=== PATIENT | female | born 1995 | race Caucasian/White ===

== ENCOUNTER 2017-03-13 13:29 | Emergency (ER) | payer MEDICAID, OTHER ==
[~2017-03-13] VITALS: Ht 154.9 cm; Wt 73.0 kg
[2017-03-13 14:10] VITALS: BP 122/78
--- NOTE | 2017-03-13 14:35 | NUR ---
Patient ambulated to bed 8. RN evaluating patient at bedside.
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
[2017-03-13 15:36] VITALS: BP 118/78
--- NOTE | 2017-03-13 15:36 | NUR ---
Patient discharged with v/s stable. Written and verbal after care instructions given and explained.Patient alert, oriented and verbalized understanding of instructions. Ambulatory with steady gait. All questions addressed prior to discharge. ID band removed. Patient advised to follow up with PMD. Rx of MIRALAX AND REGLAN given. Patient educated on indication of medication including possible reaction and side effects. Opportunity to ask questions provided and answered.
== END 2017-03-13 15:36 | disposition home or self-care (01) ==
LOC: MED 13:29
DX: R11.0 Nausea (principal); R03.0 Elevated blood-pressure reading, without diagnosis of hypertension

== ENCOUNTER 2020-09-12 13:50 | Emergency (ER) | payer OTHER ==
[~2020-09-12] VITALS: Ht 152.4 cm; Wt 123.8 kg
[2020-09-12 14:05] VITALS: BP 120/78
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
--- NOTE | 2020-09-12 14:49 | NUR ---
POLICE AT BEDSIDE
--- NOTE | 2020-09-12 14:49 | NUR ---
[place] [employer] AT BEDSIDE
[2020-09-12 15:01] VITALS: BP 120/78
== END 2020-09-12 15:04 | disposition home or self-care (01) ==
LOC: MED 13:50
DX: S40.021A Contusion of right upper arm, initial encounter (principal); S00.81XA Abrasion of other part of head, initial encounter; Y04.1XXA Assault by human bite, initial encounter; Y93.89 Activity, other specified; Y92.89 Other specified places as the place of occurrence of the external cause; Y99.8 Other external cause status
CPT/HCPCS: 99283

== ENCOUNTER 2021-12-18 01:20 | Emergency (ER) | payer OTHER ==
[~2021-12-18] VITALS: Ht 157.5 cm; Wt 135.2 kg
--- NOTE | 2021-12-18 01:23 | NUR ---
PT BROUGHT TO BED 5 VIA CECY TERRAZAS
[2021-12-18 01:24] VITALS: BP 125/86
--- NOTE | 2021-12-18 01:29 | NUR ---
Patient BIB by BLS/EMS from home. C/O suicidal ideation x today. Per reported, patient was hearing voice to harm herself, planned to harm herself- Hx Bipolar and Keisha. A/O,X4, denies pain, no N/V/D.
--- NOTE | 2021-12-18 01:33 | NUR ---
Med rec reviewed and completed.
[2021-12-18] MEDS ORDERED: ARIP5TAB8 PO (01:44)
[2021-12-18] MEDS ORDERED: QUET400T PO (01:44)
[2021-12-18] MEDS ORDERED: SULF-954 PO (01:44)
[2021-12-18] MEDS ORDERED: SERT-514 PO (01:44)
[2021-12-18] MEDS ORDERED: TOP100 PO (01:44)
[2021-12-18] MEDS ORDERED: CHOL400T7 PO (01:44)
[2021-12-18] MEDS ORDERED: BENZ100C6 PO (01:44)
--- NOTE | 2021-12-18 01:46 | NUR ---
BELONGININGS GATHERED AND GIVEN TO SECURITY
--- NOTE | 2021-12-18 01:48 | NUR ---
DR. PARSON AT BEDSIDE FOR EVALUATION
--- NOTE | 2021-12-18 02:01 | NUR ---
COVID-19 rapid and PCR swabs collected and sent to lab.
--- NOTE | 2021-12-18 02:09 | NUR ---
Blood for labwork drawn from left arm per circus artist. Patient tolerated well.
[2021-12-18 02:22] LABS: BASOPHILS # (AUTO) 0.1 K/uL (0.00-0.22); BASOPHILS % (AUTO) 0.6 % (0.0-2.0); EOSINOPHILS % (AUTO) 0.1 % (0.0-4.0); HEMATOCRIT 38.4 % (36-48); HEMOGLOBIN 12.7 g/dL (12.0-16.0); MEAN CORPUSCULAR HEMOGLOBIN 28 pg (27-31); MEAN CORPUSCULAR HGB CONC 33 g/dL (33-37); MEAN CORPUSCULAR VOLUME 83.5 fL (80-94); MONOCYTES # (AUTO) 0.8 K/uL (0.8-1.0); MONOCYTES % (AUTO) 6.2 % (1.7-9.3); NEUTROPHILS # (AUTO) 9.9 K/uL (1.8-7.7); NEUTROPHILS % (AUTO) 77.1 % (42.2-75.2); PLATELET COUNT (AUTO) 362 K/uL (140-450); WHITE BLOOD COUNT (AUTO) 12.8 K/uL (4.8-10.8)
[2021-12-18 02:55] LABS: ALBUMIN 3.6 g/dL (3.4-5.0); ANION GAP 12.7 (8-16); ASPARTATE AMINOTRANSFERASE 14 U/L (15-37); CARBON DIOXIDE 22.4 mmol/L (21-32); CHLORIDE 106 mmol/L (98-107); CREATININE 0.8 mg/dL (0.6-1.3); GFR ARICAN-AMERICAN 112 mL/min (>90); GLUCOSE 109 mg/dL (74-106); POTASSIUM 3.1 mmol/L (3.5-5.1); SODIUM SERUM 138 mmol/L (136-145); THYROID STIMULATING HORMONE 2.63 uIU/mL (0.34-3.74); TOTAL BILIRUBIN 0.3 mg/dL (0.0-1.0); UREA NITROGEN, BLOOD 9 mg/dL (7-18)
[2021-12-18 03:08] LABS: ACETAMINOPHEN < 0.5 ug/ml (10-30); SALICYLATE < 2.8 mg/dL (2.8-20.0)
[2021-12-18] MEDS ORDERED: POTASSIUM CHLORIDE 10 MEQ TABER PO ONE (03:35)
--- NOTE | 2021-12-18 04:14 | NUR ---
Escort patient to restroom.
--- NOTE | 2021-12-18 05:11 | NUR ---
In and out cath and collected urine sample and sent to lab.
[2021-12-18 06:01] LABS: APPEARANCE,URINE CLEAR (CLEAR); BILIRUBIN,URINE NEGATIVE (NEGATIVE); BLOOD, URINE NEGATIVE (NEGATIVE); COLOR,URINE YELLOW (YELLOW); LEUKOCYTE ESTERASE ,URINE NEGATIVE (NEGATIVE); NITRITE, URINE NEGATIVE (NEGATIVE); UGLUCOSE NEGATIVE (NEGATIVE)
--- NOTE | 2021-12-18 07:08 | NUR ---
Report given to MARTIN Menjivar and endorse care of patient.
--- NOTE | 2021-12-18 07:20 | NUR ---
RECEIVED REPORT FROM MARTIN PANDYA. ASSUMED CARE AT THIS TIME.
--- NOTE | 2021-12-18 09:06 | NUR ---
PATIENT PROVIDED WITH BREAKFAST TRAY, SITTING UP IN BED EATING. WILL CONTINUE TO MONITOR.
--- NOTE | 2021-12-18 11:00 | NUR ---
PATIENT CRYING AND VISIBLY UPSET, STATING "TODAY IS THE DAY I AM GOING TO ." PATIENT REORIENTED, GIVEN WATER AND LIGHTS DIMMED FOR COMFORT. WILL CONTINUE TO MONITOR.
[2021-12-18 11:32] LABS: BARBITURATE, URINE NEGATIVE ng/ml (NEG <=200); BENZODIAZEPINE, URINE NEGATIVE ng/mL (NEG <=200); CANNABINOID, URINE NEGATIVE ng/mL (NEG <=50); COCAINE, URINE NEGATIVE ng/mL (NEG <=300); OPIATE, URINE NEGATIVE ng/mL (NEG <=2000); PHENCYCLIDINE SCREEN,URINE NEGATIVE ng/mL (NEG <=25)
--- NOTE | 2021-12-18 12:32 | NUR ---
Received intake this AM. Information has been faxed to the following facilities for review for placement. [facility]/ Critical access hospital/ [facility]/ [place]/ [facility] [place]/ [place]/ [place]/ [place]/ [place] [facility]....Will keep ER informed of any updates
--- NOTE | 2021-12-18 12:42 | NUR ---
PATIENT PROVIDED WITH LUNCH TRAY, SITTING UP IN BED EATING. WILL CONTINUE TO MONITOR.
--- NOTE | 2021-12-18 17:31 | NUR ---
PATIENT PROVIDED WITH DINNER TRAY, SITTING UP IN BED EATING. WILL CONTINUE TO MONITOR.
--- NOTE | 2021-12-18 19:15 | NUR ---
Pt report given to HAFSA CHRISTY. Transfer of care at this time.
[2021-12-18] MEDS: QUEtiapine FUMARATE 100 MG TAB PO SCH (21:35)
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
--- NOTE | 2021-12-19 07:30 | NUR ---
RECEIVED PT IN [facility] ALERT ORIENTED. DENIES PAIN OR DISCOMFORT. DENIES SI OR HI. CALM COOPERATIVE. NAD. SAFETY MAINTAINED.
[2021-12-19] MEDS ORDERED: CRUSHER, PILL MC ONE (10:06)
[2021-12-19] MEDS: ARIPiprazole 10 MG TAB PO SCH (10:08)
--- NOTE | 2021-12-19 10:30 | NUR ---
SPOKE TO INTAKE A [facility] STATES WILL TAKE PT BUT PENDING COVID PCR.
--- NOTE | 2021-12-19 11:01 | NUR ---
Patient moved to bed 14 at this time.
--- NOTE | 2021-12-19 13:00 | NUR ---
PT ASLEEP NO CHANGES NOTED. SAFETY MAINTAINED.
[2021-12-19] MEDS ORDERED: FAMOTIDINE 20 MG TAB PO ONE (15:25)
[2021-12-19] MEDS ORDERED: ALUMINUM HYD/MAG/SIMETHICONE 30 ML, DICYCLOMINE HCL LIQUID 20 MG, LIDOCAINE VISCOUS 2% ... PO ONE ×3 (15:25)
[2021-12-19] MEDS ORDERED: ALUMINUM HYD/MAG/SIMETHICONE 30 ML UDC ONE (15:33)
[2021-12-19] MEDS ORDERED: DICYCLOMINE HCL LIQUID 10 MG/5 ML UDC ONE (15:34)
--- NOTE | 2021-12-19 16:00 | NUR ---
PT C/O MID ABDOMINAL PAIN MEDICATED PER ORDER. NAD
--- NOTE | 2021-12-19 17:53 | NUR ---
PT STATES RELIEF FROM ANY PAIN OR DISCOMFORT.
--- NOTE | 2021-12-19 18:44 | NUR ---
Assumed care of pt at this time
--- NOTE | 2021-12-19 18:45 | NUR ---
Pt is resting comfortably in bed. Denies pain at this time. All safety measures in place. Pt under observation per hospital policy
[2021-12-19] MEDS ORDERED: HALOPERIDOL IM 5 MG/ML VIAL IM ONE (19:05)
[2021-12-19] MEDS ORDERED: LORazepam 2 MG/ML VIAL IM/IVP ONE (19:05)
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
--- NOTE | 2021-12-19 19:32 | NUR ---
Pt report given to MARTIN Pulliam. Transfer of care at this time.
--- NOTE | 2021-12-19 21:17 | NUR ---
PT MOVED TO BED 5
--- NOTE | 2021-12-19 21:30 | NUR ---
Chitra cardoso in [facility] - 12/19/21 at 2229 by [email or web address] PT AND FATHER IS TALKING WITH PSYCH DR VIA [employer].
[2021-12-19] MEDS: QUEtiapine FUMARATE 100 MG TAB PO SCH (21:45)
[2021-12-20] MEDS ORDERED: SULF-58 PO (05:35)
[2021-12-20] MEDS ORDERED: QUET25TA PO (05:35)
[2021-12-20] MEDS ORDERED: TOP25 PO (05:35)
[2021-12-20] MEDS ORDERED: ARIP5TAB8 PO (05:35)
[2021-12-20] MEDS ORDERED: SERT25TA PO (05:35)
--- NOTE | 2021-12-20 07:13 | NUR ---
GAVE TRANSFER OF CARE REPORT TO FRAN SALAZAR
--- NOTE | 2021-12-20 07:18 | NUR ---
RECEIVED REPORT FROM MARTIN ESCAMILLA FOR TRANSFER OF CARE
--- NOTE | 2021-12-20 08:07 | NUR ---
PT PROVIDED WITH BREAKFAST TRAY BEDSIDE
--- NOTE | 2021-12-20 09:33 | NUR ---
Patient appears to be resting comfortably in bed. Vital Signs within normal limits. Respirations even and unlabored. Patient refused breakfast.
[2021-12-20] MEDS: ARIPiprazole 10 MG TAB PO SCH (09:43)
--- NOTE | 2021-12-20 10:42 | NUR ---
PATIENT HAS BEEN SCREENED AND CATEGORIZED LOW NUTRITION RISK. PATIENT WILL BE SEEN WITHIN 7 DAYS OF ADMISSION. 12/25/[address]
--- NOTE | 2021-12-20 11:11 | NUR ---
Patient appears to be resting comfortably in bed. Vital Signs within normal limits. Respirations even and unlabored.
--- NOTE | 2021-12-20 12:00 | NUR ---
PT PROVIDED WITH TOOTHBRUSH, MOUTHWASH, TOOTHPASTE, COMB BEDSIDE AND WALKED TO RESTROOM. PATIENT SUPERVISED BY EMT WHILE PATIENT CLEANED SELF IN RESTROOM
--- NOTE | 2021-12-20 12:30 | NUR ---
PATIENT PROVIDED WITH ORAL CARE, AMBULATED TO RESTROOM WITH STEADY GAIT.
--- NOTE | 2021-12-20 12:36 | NUR ---
PT IN ROOM SITTING QUIETLY AT THIS TIME
--- NOTE | 2021-12-20 12:36 | NUR ---
PATIENT AMBULATED BACK TO ROOM WITH STEADY GAIT, PROVIDED WITH LUNCH TRAY. PATIENT SITTING UP IN BED EATING, ALL NEEDS MET AT THIS TIME.
--- NOTE | 2021-12-20 12:41 | NUR ---
PT EATING LUNCH BEDSIDE
--- NOTE | 2021-12-20 14:04 | NUR ---
PT PROVIDED WITH FRESH LINEN, GOWN, PILLOW AND WARM BLANKETS
--- NOTE | 2021-12-20 14:20 | NUR ---
Received updated results of Covid and faxed to Pat/[facility] to update the review. Pat called back and stated that the physician has dnied at this time for a bed unable to review until 12/21. Called [facility] and relayed the information. She stated that the patient was awaiting telepsych to adhere to the update
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
--- NOTE | 2021-12-20 16:36 | NUR ---
PT PROVIDED WITH COLORING BOOK AND CRANYONS BEDSIDE
[2021-12-20] MEDS ORDERED: ZIPRASIDONE MESYLATE 20 MG/ML VIAL IM ONE ×2 (17:50→23:57)
--- NOTE | 2021-12-20 18:05 | NUR ---
PT PROVIDED WITH COLORING BOOK
--- NOTE | 2021-12-20 18:06 | NUR ---
PT STANDING IN ROOM DOORWAY COLORING AT THIS TIME
--- NOTE | 2021-12-20 18:20 | NUR ---
PT PROVIDED WITH DINNER TRAY BEDSIDE
--- NOTE | 2021-12-20 18:47 | NUR ---
PT PROVIDED WITH PORTABLE PHONE TO SPEAK WITH MOM
--- NOTE | 2021-12-20 19:19 | NUR ---
PT REPORT RECEIVED FROM MARTIN PETERS, TRANSFER OF CARE AT THIS TIME.
--- NOTE | 2021-12-20 19:19 | NUR ---
Pt report given to AMRTIN GAUTHIER. Transfer of care at this time.
--- NOTE | 2021-12-20 19:23 | NUR ---
PT PACING IN ROOM. DENIES ANY PAIN. VSS. BREATHING EVEN AND UNLABORED. WILL CONTINUE TO MONITOR.
--- NOTE | 2021-12-20 19:39 | NUR ---
PT REPORTS NAUSEA AFTER DRINKING MILK, PT VOMITED X1. ERMD MADE AWARE.
[2021-12-20] MEDS ORDERED: ONDANSETRON 4 MG ODT PO ONE (19:40)
--- NOTE | 2021-12-20 20:49 | NUR ---
PT AMBULATED TO BATHROOM W STEADY GAIT.
[2021-12-20] MEDS: QUEtiapine FUMARATE 100 MG TAB PO SCH (20:56)
--- NOTE | 2021-12-20 21:56 | NUR ---
PT APPEARS TO BE RESTING W EYES CLOSED IN L LATERAL POSITION W BREATHING EVEN AND UNLABORED. NAD NOTED, WILL CONTINUE TO MONITOR.
--- NOTE | 2021-12-20 22:34 | NUR ---
PT APPEARS TO BE RESTING W EYES CLOSED. BREATHING EVEN AND UNLABORED. WILL CONTINUE TO MONITOR,.
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
--- NOTE | 2021-12-21 00:19 | NUR ---
[place] [employer] AT BEDSIDE
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
--- NOTE | 2021-12-21 02:29 | NUR ---
PT APPEARS TO BE RESTING W EYES CLOSED IN PRONE POSITION. BREATHING EVEN AND UNLABORED. WILL CONTINUE TO MONITOR.
--- NOTE | 2021-12-21 03:49 | NUR ---
NO CHANGE IN PT STATUS AT THIS TIME.
[2021-12-21] MEDS ORDERED: LORazepam 2 MG/ML VIAL IM ONE (04:45)
[2021-12-21] MEDS ORDERED: HALOPERIDOL IM 5 MG/ML VIAL IM ONE ×2 (04:45→08:50)
--- NOTE | 2021-12-21 05:05 | NUR ---
PT RESTLESS, LEAVING ROOM CONTINOUSLY. PT REPORTS ANXIETY. ERMD AWARE, NEW ORDERS FOR ATIVAN AND HALDOL CARRIED OUT.
--- NOTE | 2021-12-21 06:16 | NUR ---
PT APPEARS TO BE RESTING W EYES CLOSED IN SUPINE POSITION W X2 SIDERAILS UP FOR PT SAFETY. BREATHING EVEN AND UNLABORED. NAD NOTED, WILL CONTINUE TO MONITOR.
--- NOTE | 2021-12-21 07:12 | NUR ---
Pt report given to MARTIN PETERS. Transfer of care at this time.
--- NOTE | 2021-12-21 07:13 | NUR ---
RECEIEVED REPORT FROM MARTIN GAUTHIER FOR TRANSFER OF CARE
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
--- NOTE | 2021-12-21 08:45 | NUR ---
PT RETURNED TO BED 5 AND INSTRUCTED SHE NEEDS TO STAY IN HER ROOM
[2021-12-21] MEDS ORDERED: LORazepam 1 MG TAB PO ONE (08:50)
[2021-12-21] MEDS: ARIPiprazole 10 MG TAB PO SCH (09:13)
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
--- NOTE | 2021-12-21 10:19 | NUR ---
PT WALKING AROUND IN ROOM AT THIS TIME PACING AROUND BED.
--- NOTE | 2021-12-21 10:26 | NUR ---
PT REQUESTING TO SPEAK WITH PSYCHIATRIST AT THIS TIME. INFORMED SHE SPOKE WITH PSYCHIARTIST YESTERDAY AND SHE NEEDS TO STAY IN ROOM FOR PATIENT SAFETY
[2021-12-21] MEDS ORDERED: ZIPRASIDONE MESYLATE 20 MG/ML VIAL IM ONE (10:55)
--- NOTE | 2021-12-21 10:57 | NUR ---
PT PROVIDED WITH COLORING BOOK BEDSIDE
--- NOTE | 2021-12-21 11:43 | NUR ---
PT AMBULATED TO RESTROOM. PATIENT IN LINE OF SIGHT OF RN
--- NOTE | 2021-12-21 12:01 | NUR ---
SPOKE WITH CARMELA FROM [facility] AND PROVIDED PATIENT INFORMATION FOR POSSIBLE TX
--- NOTE | 2021-12-21 12:06 | NUR ---
SPOKE WITH CARMELA FROM [facility] AND PATIENT HAS BEEN ACCEPTED UNDER . PATIENT WILL BE ACCEPTED TO ROOM 2A
--- NOTE | 2021-12-21 13:30 | NUR ---
Patient to be transferred to [facility]. Is being transferred due to HIGHER LEVEL OF CARE. Receiving facility has accepting physician and available space. ER physician has signed transfer form. Patient or responsible republican has agreed to transfer and signed form. Patient belongings inventoried and will be sent with patient. Copy of nursing notes, lab reports, EKG, Physicians Orders and X-rays to be sent with patient. Report called to MARTIN RIVERA at receiving facility. [facility] ambulance service has been called for transfer. ETA is 1500.
[2021-12-21 14:47] VITALS: BP 131/80
--- NOTE | 2021-12-21 14:48 | NUR ---
PATIENT TAKEN TO [facility] VIA [facility] BY YADIRA
== END 2021-12-21 14:47 ==
LOC: MED 01:20
DX: R44.0 Auditory hallucinations (principal); Z20.822 Contact with and (suspected) exposure to COVID-19; R45.851 Suicidal ideations; Z79.899 Other long term (current) drug therapy
CPT/HCPCS: 36415; 80053; 80305; 81003; 81025; 84443; 85025; 87426; 96372; 99285; G0480; G0482; J1630; J2060; J3486; Q0162; U0003

== ENCOUNTER 2022-01-09 00:38 | Emergency (ER) | payer OTHER ==
[~2022-01-09] VITALS: Ht 160 cm; Wt 120.2 kg
[~2022-01-09 00:38] MED LIST: ARIP5TAB8 PO; BENZ100C6 PO; CHOL400T7 PO; QUET25TA PO; QUET400T PO; SERT-514 PO; SERT25TA PO; SULF-58 PO; SULF-954 PO; TOP100 PO; TOP25 PO
[2022-01-09 00:47] VITALS: BP 119/96
--- NOTE | 2022-01-09 00:58 | NUR ---
PT TAKEN TO BED 4
--- NOTE | 2022-01-09 01:01 | NUR ---
Dr. Ruiz at bedside to exam patient.
[2022-01-09 01:09] VITALS: BP 119/96
--- NOTE | 2022-01-09 01:09 | NUR ---
Patient discharged with v/s stable. Written and verbal after care instructions given and explained. Patient verbalized understanding. Ambulatory with steady gait. ID band remove. All questions addressed prior to discharge. Advised to follow up with PMD.
== END 2022-01-09 01:09 | disposition home or self-care (01) ==
LOC: MED 00:38
DX: R19.7 Diarrhea, unspecified (principal); Z79.899 Other long term (current) drug therapy
CPT/HCPCS: 81002; 81025; 99282

== ENCOUNTER 2022-01-26 15:44 | Emergency (ER) | payer OTHER ==
[~2022-01-26] VITALS: Ht 152.4 cm; Wt 114.3 kg
[2022-01-26 15:48] VITALS: BP 122/75
--- NOTE | 2022-01-26 15:51 | NUR ---
PT AMBULATED TO ER BED 4 WITH A STEADY GAIT.
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
--- NOTE | 2022-01-26 16:12 | NUR ---
DR ZAMBRANO AT BEDSIDE FOR MSE
[2022-01-26] MEDS ORDERED: BACI1PAC6 TP (16:39)
[2022-01-26] MEDS ORDERED: CEPH-588 PO (16:39)
[2022-01-26] MEDS ORDERED: BACITRACIN OINT 500 UNITS/GM PKT TP ONE (16:40)
[2022-01-26] MEDS ORDERED: ACETAMINOPHEN EXTRA STRENGTH 500 MG TAB PO ONE (16:40)
[2022-01-26] MEDS ORDERED: cephALEXin 500 MG CAP PO ONE (16:40)
[2022-01-26 16:50] VITALS: BP 122/75
--- NOTE | 2022-01-26 16:50 | NUR ---
Patient discharged with v/s stable. Written and verbal after care instructions given and explained. Patient alert, oriented and verbalized understanding of instructions. Ambulatory with steady gait. All questions addressed prior to discharge. ID band removed. Patient advised to follow up with PMD. Rx of BACITRACIN, KEFLEX given. Patient educated on indication of medication including possible reaction and side effects. Opportunity to ask questions provided and answered.
== END 2022-01-26 16:50 | disposition home or self-care (01) ==
LOC: MED 15:44
DX: S00.81XA Abrasion of other part of head, initial encounter (principal); S40.819A Abrasion of unspecified upper arm, initial encounter; Z79.899 Other long term (current) drug therapy; Z98.890 Other specified postprocedural states; Y04.0XXA Assault by unarmed brawl or fight, initial encounter; Y93.89 Activity, other specified; Y92.89 Other specified places as the place of occurrence of the external cause; Y99.8 Other external cause status
CPT/HCPCS: 99283

== ENCOUNTER 2022-02-18 04:04 | Emergency (ER) | payer OTHER ==
[~2022-02-18] VITALS: Ht 152.4 cm; Wt 133.8 kg
[~2022-02-18 04:04] MED LIST changes: +BACI1PAC6 TP; +CEPH-588 PO
[2022-02-18 04:07] VITALS: BP 118/95
--- NOTE | 2022-02-18 04:10 | NUR ---
Dr. Ruiz at triage to exam patient.
--- NOTE | 2022-02-18 04:14 | NUR ---
Patient taken to X-ray.
[2022-02-18] MEDS ORDERED: IBUPROFEN 800 MG TAB PO ONE (04:15)
--- NOTE | 2022-02-18 04:22 | NUR ---
pt returned from radiology
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
[2022-02-18 05:33] VITALS: BP 135/68
--- NOTE | 2022-02-18 05:33 | NUR ---
Patient discharged with v/s stable. Written and verbal after care instructions given and explained. Patient verbalized understanding. Ambulatory with steady gait. All questions addressed prior to discharge. Advised to follow up with PMD.
== END 2022-02-18 05:33 | disposition home or self-care (01) ==
LOC: MED 04:04
DX: S69.91XA Unspecified injury of right wrist, hand and finger(s), initial encounter (principal); Z79.2 Long term (current) use of antibiotics; Z79.899 Other long term (current) drug therapy; W23.0XXA Caught, crushed, jammed, or pinched between moving objects, initial encounter; Y93.89 Activity, other specified; Y92.89 Other specified places as the place of occurrence of the external cause; Y99.8 Other external cause status
CPT/HCPCS: 73140; 81025; 99283

== ENCOUNTER 2022-08-03 05:55 | Emergency (ER) | payer OTHER ==
[~2022-08-03] VITALS: Ht 152.4 cm; Wt 125.6 kg
[2022-08-03 06:04] VITALS: BP 137/79
--- NOTE | 2022-08-03 06:13 | NUR ---
PATIENT UNABLE TO PROVIDE URINE AT THIS TIME.
--- NOTE | 2022-08-03 06:13 | NUR ---
PT TO LOBBY TO A/W BED
[2022-08-03] MEDS ORDERED: ALUMINUM HYD/MAG/SIMETHICONE 30 ML UDC PO ONE (06:25)
[2022-08-03] MEDS ORDERED: ONDANSETRON 4 MG ODT PO ONE (06:25)
[2022-08-03] MEDS ORDERED: FAMOTIDINE 20 MG TAB PO ONE (06:25)
--- NOTE | 2022-08-03 06:29 | NUR ---
PATIENT AMBULATED TO RR, BUT STATED SHE STILL UNABLE TO PROVIDE URINE
--- NOTE | 2022-08-03 06:34 | NUR ---
PT MOVED TO BED 9
--- NOTE | 2022-08-03 06:40 | NUR ---
PT C/O ABD PAIN WITH NAUSEA AND DIARRHEA, DENIES CP OR VOMITING, PT PLACED ON MONITOR, HX- BIPOLAR.
--- NOTE | 2022-08-03 07:30 | NUR ---
RECEIVED PT IN [facility] AOX4. DENIES PAIN OR DISCOMFORT AT THS TIME. NAD. PENDING DISPO.
[2022-08-03 08:00] LABS: ALBUMIN 3.2 g/dL (3.4-5.0); ANION GAP 14.2 (8-16); CARBON DIOXIDE 26.2 mmol/L (21-32); CREATININE 0.8 mg/dL (0.6-1.3); POTASSIUM 4.4 mmol/L (3.5-5.1); TOTAL BILIRUBIN 0.7 mg/dL (0.0-1.0)
[2022-08-03 08:02] LABS: BASOPHILS % (AUTO) 0.2 % (0.0-2.0); EOSINOPHILS # (AUTO) 0.2 K/uL (0-0.4); EOSINOPHILS % (AUTO) 1.5 % (0.0-4.0); HEMATOCRIT 45.6 % (36-48); HEMOGLOBIN 14.8 g/dL (12.0-16.0); LYMPHOCYTES # (AUTO) 2.8 K/uL (2.5-16.5); MEAN CORPUSCULAR HEMOGLOBIN 27 pg (27-31); MEAN CORPUSCULAR HGB CONC 32 g/dL (33-37); MEAN CORPUSCULAR VOLUME 83.9 fL (80-94); MONOCYTES # (AUTO) 0.8 K/uL (0.8-1.0); MONOCYTES % (AUTO) 6.5 % (1.7-9.3); NEUTROPHILS # (AUTO) 8.9 K/uL (1.8-7.7); NEUTROPHILS % (AUTO) 69.8 % (42.2-75.2); PLATELET COUNT (AUTO) 349 K/uL (140-450); RED BLOOD CELL COUNT(AUTO) 5.44 MIL/uL (4.20-5.40); RED CELL DISTRIBUTION WIDTH 13.9 % (11.6-13.7); WHITE BLOOD COUNT (AUTO) 12.7 K/uL (4.8-10.8)
[2022-08-03] MEDS ORDERED: BEN10 PO (10:17)
[2022-08-03] MEDS ORDERED: ONDA-188 SL (10:17)
[2022-08-03] MEDS ORDERED: FAMO-90 PO (10:17)
[2022-08-03 10:28] VITALS: BP 107/67
--- NOTE | 2022-08-03 10:29 | NUR ---
Patient discharged with v/s stable. Written and verbal after care instructions given and explained. Patient alert, oriented and verbalized understanding of instructions. Ambulatory with steady gait. All questions addressed prior to discharge. ID band removed. Patient advised to follow up with PMD. Rx of BENTYL, PEPCID, ZOFRAN given. Patient educated on indication of medication including possible reaction and side effects. Opportunity to ask questions provided and answered.
== END 2022-08-03 10:29 | disposition home or self-care (01) ==
LOC: MED 05:55
DX: R10.13 Epigastric pain (principal); R19.7 Diarrhea, unspecified; R11.0 Nausea; Z79.899 Other long term (current) drug therapy; Z98.890 Other specified postprocedural states
CPT/HCPCS: 36415; 80053; 81025; 83690; 85025; 99284; Q0162

== ENCOUNTER 2023-07-31 02:55 | Emergency (ER) | payer OTHER ==
[~2023-07-31] VITALS: Ht 152.4 cm; Wt 144.2 kg
[~2023-07-31 02:55] MED LIST changes: +BACI-418 TP; -BACI1PAC6 TP; +BEN10 PO; +FAMO-90 PO; +ONDA-188 SL
[2023-07-31 03:10] VITALS: BP 131/76; PULSE 76; RESP 17; TEMP 97.8; O2SAT 100
[2023-07-31 03:40] VITALS: O2SAT 100
[2023-07-31] MEDS ORDERED: KETOROLAC 30 MG/ML VIAL ONE (04:12)
[2023-07-31] MEDS ORDERED: DICYCLOMINE HCL LIQUID 20 MG, ALUMINUM HYD/MAG/SIMETHICONE 30 ML, LIDOCAINE VISCOUS 2% ... PO ONE ×3 (04:15)
[2023-07-31] MEDS ORDERED: ALUMINUM HYD/MAG/SIMETHICONE 30 ML UDC ONE (04:18)
[2023-07-31] MEDS ORDERED: DICYCLOMINE HCL LIQUID 10 MG/5 ML UDC ONE (04:18)
[2023-07-31] MEDS ORDERED: MAG-27 PO (04:30)
[2023-07-31] MEDS ORDERED: KETOROLAC 30 MG/ML VIAL IM ONE (04:30)
[2023-07-31] MEDS ORDERED: ACET-10509 PO (04:30)
== END 2023-07-31 04:56 | disposition home or self-care (01) ==
LOC: MED 02:55
DX: R10.10 Upper abdominal pain, unspecified (principal); Z79.899 Other long term (current) drug therapy
CPT/HCPCS: 81002; 81025; 96372; 99283; J1885

== ENCOUNTER 2024-03-11 00:15 | Emergency (ER) | payer OTHER ==
[~2024-03-11] VITALS: Ht 152.4 cm; Wt 134.3 kg
[~2024-03-11 00:15] MED LIST changes: +ACET-10509 PO; +MAG-27 PO
[2024-03-11 00:21] VITALS: BP 121/103; PULSE 83; RESP 18; TEMP 97.6; O2SAT 99
[2024-03-11 00:49] VITALS: O2SAT 98
[2024-03-11 01:49] LABS: BASOPHILS # (AUTO) 0.1 K/uL (0.00-0.22); EOSINOPHILS # (AUTO) 0.1 K/uL (0-0.4); HEMATOCRIT 41.7 % (36-48); HEMOGLOBIN 13.6 g/dL (12.0-16.0); LYMPHOCYTES # (AUTO) 3.7 K/uL (2.5-16.5); LYMPHOCYTES % (AUTO) 29.5 % (20.5-51.1); MEAN CORPUSCULAR HEMOGLOBIN 28 pg (27-31); MEAN CORPUSCULAR HGB CONC 33 g/dL (33-37); MEAN CORPUSCULAR VOLUME 84.4 fL (80-94); MONOCYTES # (AUTO) 0.9 K/uL (0.8-1.0); MONOCYTES % (AUTO) 7.3 % (1.7-9.3); NEUTROPHILS # (AUTO) 7.6 K/uL (1.8-7.7); NEUTROPHILS % (AUTO) 61.2 % (42.2-75.2); PLATELET COUNT (AUTO) 317 K/uL (140-450); RED BLOOD CELL COUNT(AUTO) 4.94 MIL/uL (4.20-5.40); WHITE BLOOD COUNT (AUTO) 12.5 K/uL (4.8-10.8)
[2024-03-11] MEDS: NACL 0.9% 1,000 ML IV ONE (01:50)
[2024-03-11] MEDS: ONDANSETRON 4 MG/2 ML VIAL IVP ONE (01:51)
[2024-03-11] MEDS: MORPHINE SULFATE 4 MG/ML SYR IVP ONE (01:53)
[2024-03-11 01:58] LABS: CALCIUM 8.8 mg/dL (8.5-10.1); CARBON DIOXIDE 29.3 mmol/L (21-32); CREATININE 0.8 mg/dL (0.6-1.3); POTASSIUM 3.3 mmol/L (3.5-5.1)
[2024-03-11 02:11] LABS: APPEARANCE,URINE CLEAR (CLEAR); BILIRUBIN,URINE NEGATIVE (NEGATIVE); BLOOD, URINE NEGATIVE (NEGATIVE); COLOR,URINE YELLOW (YELLOW); LEUKOCYTE ESTERASE ,URINE NEGATIVE (NEGATIVE); NITRITE, URINE NEGATIVE (NEGATIVE); PROTEIN,URINE NEGATIVE (NEGATIVE); UGLUCOSE NEGATIVE (NEGATIVE); UROBILINOGEN,URINE 0.2 EU/dL (0.2 - 1)
[2024-03-11 02:19] LABS: ALBUMIN 3.5 g/dL (3.4-5.0); BILIRUBIN,DIRECT 0.1 mg/dL (0.0-0.3); TOTAL BILIRUBIN 0.4 mg/dL (0.0-1.0)
[2024-03-11] MEDS: HYDROXYZINE HYDROCHLORIDE 25 MG TAB PO ONE (03:29)
[2024-03-11 03:50] VITALS: BP 143/77; PULSE 65; RESP 18; TEMP 97.7; O2SAT 99
== END 2024-03-11 03:50 | disposition home or self-care (01) ==
LOC: MED 00:15
DX: K80.20 Calculus of gallbladder without cholecystitis without obstruction (principal); R11.2 Nausea with vomiting, unspecified; Z79.2 Long term (current) use of antibiotics; Z79.899 Other long term (current) drug therapy
CPT/HCPCS: 36415; 76705; 80048; 80076; 81003; 81025; 82150; 83690; 85025; 96361; 96374; 96375; 99285; J2270; J2405; Q0092; J7030